=== PATIENT | female | born 1985 | race Caucasian/White ===

== ENCOUNTER 2022-10-07 13:57 | Outpatient (CLI) | payer OTHER | END 2022-10-07 13:58 | disposition home or self-care (01) | LOC: CSHMAMMO 13:57 | PROVIDERS: ATTEND Nurse Practitioner Family | DX: N63.23 Unspecified lump in the left breast, lower outer quadrant (principal) | CPT/HCPCS: 77066; G0279 ==

== ENCOUNTER 2024-12-25 05:30 | Inpatient (IN) | payer BC ==
[2024-12-25 06:17] VITALS: BMI 27.6
[2024-12-25] MEDS ORDERED: Tranexamic Acid 1,000 MG/10 ML VIAL IVP PRN (07:09)
[2024-12-25] MEDS ORDERED: hydrALAZINE 20 MG/ML VIAL SLOW IVP PRN ×2 (07:09→22:58)
[2024-12-25] MEDS ORDERED: Diphenoxylate HCl/Atropine Tablet PO PRN ×2 (07:09)
[2024-12-25] MEDS ORDERED: HYDROcodone/Acetaminophen 5/325 mg Tablet PO PRN ×3 (07:09→22:58)
[2024-12-25] MEDS ORDERED: Lidocaine 1% (PF) 30 ML VIAL SC PRN (07:09)
[2024-12-25] MEDS ORDERED: Carboprost 250 MCG/ML AMP IM PRN (07:09)
[2024-12-25 07:19] LABS: Hematocrit 37.9 % (34.9-44.5); Hemoglobin 13.4 g/dL (12.0-15.5); Mean Corpuscular Hemoglobin 37.1 pg (27.0-33.0); Mean Corpuscular Volume 105.0 fL (81.6-98.3); Platelet Count 152 10x3/uL (150-450); Red Blood Cell (RBC) Count 3.61 10x6/uL (3.90-5.03); White Blood Cell (WBC) Count 6.35 10x3/uL (3.5-10.5)
[2024-12-25 07:49] LABS: Hep B Surf Ag - L&D Non-Reactive S/CO (NonReactive)
[2024-12-25 07:50] LABS: Syphilis Antibody Index 0.09 S/CO (<1.00 Non-Reactive)
[2024-12-25] MEDS: Oxytocin 30 units/NS 500 ML 500 ML IV SCH ×2 (12:20→19:29)
[2024-12-25] MEDS: fentaNYL/Ropivacaine Epidural 100 ML ONE (14:53)
[2024-12-25] MEDS ORDERED: Ondansetron PF 4 MG/2 ML Vial IVP PRN ×2 (15:10→22:58)
[2024-12-25] MEDS ORDERED: diphenhydrAMINE 50 MG/ML VIAL IVP PRN (15:10)
[2024-12-25] MEDS ORDERED: Acetaminophen 325 MG TAB PO PRN (15:10)
[2024-12-25] MEDS ORDERED: fentaNYL 2 mcg/Ropivacaine 0.2% Epidural 100 ML CADD EPIDURAL SCH (15:15)
[2024-12-25] MEDS ORDERED: Communication Order-Pharmacy FS SCH (15:15)
[2024-12-25] MEDS: Ondansetron PF 4 MG/2 ML Vial IVP PRN (15:29)
[2024-12-25] MEDS: Ibuprofen 800 MG TAB PO PRN (18:22)
[2024-12-25] MEDS: Methylergonovine 0.2 MG/ML VIAL IM PRN (19:23)
[2024-12-25] MEDS ORDERED: Methylergonovine 0.2 MG/ML VIAL IM PRN (22:58)
[2024-12-25] MEDS ORDERED: Boostrix 0.5 ML (Tdap) VIAL (>/=7 yrs of age) IM ONE (22:58)
[2024-12-25] MEDS ORDERED: Oxytocin 30 units/NS 500 ML 500 ML IV SCH (22:58)
[2024-12-25] MEDS ORDERED: Bisacodyl 10 MG SUPP PR PRN (22:58)
[2024-12-25] MEDS ORDERED: Lanolin Ointment 7 GM TUBE TOP PRN (22:58)
[2024-12-25] MEDS ORDERED: Benzocaine-Menthol 82.5 ML CAN TOP PRN (22:58)
[2024-12-25] MEDS: HYDROcodone/Acetaminophen 5/325 mg Tablet PO PRN (23:27)
[2024-12-25 23:42] VITALS: TEMP 98.2
[2024-12-26] MEDS: Ibuprofen 800 MG TAB PO SCH ×2 (04:54→13:56)
[2024-12-26] MEDS: Milk Of Magnesia 30 ML UDCUP PO PRN (05:12)
[2024-12-26] MEDS: Ferrous Sulfate 325 MG TAB PO SCH (07:53)
[2024-12-26 16:32] VITALS: BP 136/89
[2024-12-26] MEDS ORDERED: Bupivacaine 0.25% HCL 30 ML VIAL ONE (18:30)
== END 2024-12-26 18:35 | disposition home or self-care (01) | DRG 807 ==
LOC: CSHLD 05:47 → CSHPP 21:08
PROVIDERS: ADMIT Obstetrics & Gynecology; ATTEND Obstetrics & Gynecology
PROC: 10E0XZZ Delivery of Products of Conception, External Approach (ICD-10-PCS; principal; 2024-12-25)
DX: O80 Encounter for full-term uncomplicated delivery (principal); Z37.0 Single live birth; Z3A.39 39 weeks gestation of pregnancy
CPT/HCPCS: 51702; 85027; 86780; 86850; 86900; 86901; 87340; J0665; J2210; J2405; J2590; J7120